=== PATIENT | female | born 1970 | race Caucasian/White ===

== ENCOUNTER → 2020-01-13 07:02 | Outpatient (CLI) | payer BC, SELFPAY ==
[2017-07-18 15:11] VITALS: BMI 39.2
== END ==
LOC: LAB 07:03 → LABSPEC 07:03
PROVIDERS: PCP Family Medicine; Referring Provider Internal Medicine; Visit Provider Internal Medicine
DX: R19.7 Diarrhea, unspecified (principal)
CPT/HCPCS: 83630; 87177; 87209; 87493; 87506

== ENCOUNTER 2020-01-15 14:17 | Outpatient (RCR) | payer BC, SELFPAY ==
[2017-07-18 15:11] VITALS: BMI 39.2
== END 2020-01-29 23:59 ==
LOC: EMPH 14:17
PROVIDERS: PCP Family Medicine; Visit Provider Family Medicine Geriatric Medicine
DX: Z11.59 Encounter for screening for other viral diseases (principal)
CPT/HCPCS: 87635; U0003

== ENCOUNTER → 2020-01-17 14:38 | Outpatient (CLI) | payer BC, SELFPAY ==
[2017-07-18 15:11] VITALS: BMI 39.2
[2020-01-17 16:32] LABS: Anion Gap 7 (5-15); BUN 7 mg/dL (7-18); BUN/Creat Ratio 13.1 RATIO (10-20); Calcium,Total 8.7 mg/dL (8.5-10.1); Chloride 107 mmol/L (98-107); Creatinine, Serum 0.53 mg/dL (0.55-1.02); EST Glomerular Filtration Rate 130 mL/min (>60); Est Glom Filt Rate - Afr Amer 157 mL/min (>60); Glucose 62 mg/dL (74-106); Potassium 4.1 mmol/L (3.5-5.1); Sodium Level 139 mmol/L (136-145)
== END ==
PROVIDERS: PCP Family Medicine; Visit Provider Family Medicine
DX: R82.4 Acetonuria (principal)
CPT/HCPCS: 36415; 80048; 83036

== ENCOUNTER 2020-02-27 11:38 | Outpatient (RCR) | payer BC, SELFPAY ==
[2017-07-18 15:11] VITALS: BMI 39.2
== END 2020-02-29 23:59 ==
LOC: EMPH 11:38
PROVIDERS: PCP Family Medicine; Referring Provider Family Medicine Geriatric Medicine; Visit Provider Family Medicine Geriatric Medicine
DX: Z03.818 Encounter for observation for suspected exposure to other biological agents ruled out (principal)
CPT/HCPCS: 87426

== ENCOUNTER 2020-03-25 13:16 | Outpatient (RCR) | payer BC, SELFPAY ==
[2017-07-18 15:11] VITALS: BMI 39.2
== END 2020-03-30 23:59 ==
LOC: EMPH 13:16
PROVIDERS: PCP Family Medicine; Referring Provider Family Medicine Geriatric Medicine; Visit Provider Family Medicine Geriatric Medicine
DX: Z03.818 Encounter for observation for suspected exposure to other biological agents ruled out (principal)
CPT/HCPCS: 87426

== ENCOUNTER 2020-04-29 14:08 | Outpatient (RCR) | payer BC, SELFPAY ==
[2017-07-18 15:11] VITALS: BMI 39.2
== END 2020-04-30 23:59 ==
LOC: EMPH 14:08
PROVIDERS: PCP Family Medicine; Referring Provider Family Medicine Geriatric Medicine; Visit Provider Family Medicine Geriatric Medicine
DX: Z03.818 Encounter for observation for suspected exposure to other biological agents ruled out (principal)
CPT/HCPCS: 87426

== ENCOUNTER 2020-05-29 14:13 | Outpatient (RCR) | payer BC, SELFPAY ==
[2017-07-18 15:11] VITALS: BMI 39.2
== END 2020-05-31 23:59 ==
LOC: EMPH 14:13
PROVIDERS: PCP Family Medicine; Referring Provider Family Medicine Geriatric Medicine; Visit Provider Family Medicine Geriatric Medicine
DX: Z03.818 Encounter for observation for suspected exposure to other biological agents ruled out (principal)
CPT/HCPCS: 87426

== ENCOUNTER 2020-06-26 14:53 | Outpatient (RCR) | payer BC, SELFPAY ==
[2017-07-18 15:11] VITALS: BMI 39.2
== END 2020-06-28 23:59 ==
LOC: EMPH 14:53
PROVIDERS: PCP Family Medicine; Referring Provider Family Medicine Geriatric Medicine; Visit Provider Family Medicine Geriatric Medicine
DX: Z03.818 Encounter for observation for suspected exposure to other biological agents ruled out (principal)
CPT/HCPCS: 87426

== ENCOUNTER 2020-07-22 14:08 | Outpatient (RCR) | payer BC, SELFPAY ==
[2017-07-18 15:11] VITALS: BMI 39.2
== END 2020-07-29 23:59 ==
LOC: EMPH 14:08
PROVIDERS: PCP Family Medicine; Referring Provider Family Medicine Geriatric Medicine; Visit Provider Family Medicine Geriatric Medicine
DX: Z03.818 Encounter for observation for suspected exposure to other biological agents ruled out (principal)
CPT/HCPCS: 87426

== ENCOUNTER 2020-08-21 14:27 | Outpatient (RCR) | payer BC, SELFPAY ==
[2017-07-18 15:11] VITALS: BMI 39.2
== END 2020-08-28 23:59 ==
LOC: EMPH 14:27
PROVIDERS: PCP Family Medicine; Referring Provider Family Medicine Geriatric Medicine; Visit Provider Family Medicine Geriatric Medicine
DX: Z03.818 Encounter for observation for suspected exposure to other biological agents ruled out (principal)
CPT/HCPCS: 87426

== ENCOUNTER → 2020-08-28 12:08 | Outpatient (CLI) | payer BC, SELFPAY ==
[2020-08-30 08:35] LABS: t-Transglutaminase IgA 3 U/mL (0-3)
[2020-08-31 16:08] LABS: Endomysial Antibody IgA Negative (Negative); Immunoglobulin A 125 mg/dL (87-352)
[2020-08-31 17:19] LABS: Deamidated Gliadin IgA 3 units (0-19); Deamidated Gliadin IgG 1 units (0-19); t-Transglutaminase IgA 3 U/mL (0-3)
== END ==
PROVIDERS: PCP Family Medicine; Referring Provider Internal Medicine; Visit Provider Internal Medicine
DX: K90.0 Celiac disease (principal)
CPT/HCPCS: 36415; 82784; 83516; 86255

== ENCOUNTER 2020-10-28 08:02 | Outpatient (RCR) | payer BC, SELFPAY ==
[2017-07-18 15:11] VITALS: BMI 39.2
== END 2020-10-28 23:59 ==
LOC: EMPH 08:02
PROVIDERS: PCP Family Medicine; Referring Provider Family Medicine Geriatric Medicine; Visit Provider Family Medicine Geriatric Medicine
DX: Z03.818 Encounter for observation for suspected exposure to other biological agents ruled out (principal)
CPT/HCPCS: 87426

== ENCOUNTER 2020-12-29 13:22 | Outpatient (RCR) | payer BC, SELFPAY ==
[2017-07-18 15:11] VITALS: BMI 39.2
== END 2020-12-29 23:59 ==
LOC: EMPH 13:22
PROVIDERS: PCP Family Medicine; Referring Provider Family Medicine Geriatric Medicine; Visit Provider Family Medicine Geriatric Medicine
DX: Z03.818 Encounter for observation for suspected exposure to other biological agents ruled out (principal)
CPT/HCPCS: 87426

== ENCOUNTER 2021-01-11 11:22 | Outpatient (RCR) | payer BC, SELFPAY | END 2021-01-28 23:59 | LOC: EMPH 11:22 | PROVIDERS: PCP Family Medicine; Referring Provider Family Medicine Geriatric Medicine; Visit Provider Family Medicine Geriatric Medicine | DX: Z03.818 Encounter for observation for suspected exposure to other biological agents ruled out (principal) | CPT/HCPCS: 87426 ==

== ENCOUNTER 2021-03-02 15:21 | Outpatient (RCR) | payer BC, SELFPAY | END 2021-03-30 23:59 | LOC: EMPH 15:21 | PROVIDERS: PCP Family Medicine; Referring Provider Family Medicine Geriatric Medicine; Visit Provider Family Medicine Geriatric Medicine | DX: Z03.818 Encounter for observation for suspected exposure to other biological agents ruled out (principal) | CPT/HCPCS: 87426 ==

== ENCOUNTER 2021-04-06 12:03 | Outpatient (RCR) | payer BC, SELFPAY | END 2021-04-30 23:59 | LOC: EMPH 12:03 | PROVIDERS: PCP Family Medicine; Referring Provider Family Medicine Geriatric Medicine; Visit Provider Family Medicine Geriatric Medicine | DX: Z03.818 Encounter for observation for suspected exposure to other biological agents ruled out (principal) | CPT/HCPCS: 87635; U0003 ==

== ENCOUNTER 2021-05-31 08:57 | Outpatient (RCR) | payer BC, SELFPAY | END 2021-05-31 23:59 | LOC: EMPH 08:57 | PROVIDERS: PCP Family Medicine; Referring Provider Family Medicine Geriatric Medicine; Visit Provider Family Medicine Geriatric Medicine | DX: Z03.818 Encounter for observation for suspected exposure to other biological agents ruled out (principal) | CPT/HCPCS: 87426 ==

== ENCOUNTER 2021-06-14 11:34 | Outpatient (RCR) | payer BC, SELFPAY | END 2021-06-28 23:59 | LOC: EMPH 11:34 | PROVIDERS: PCP Family Medicine; Referring Provider Family Medicine Geriatric Medicine; Visit Provider Family Medicine Geriatric Medicine | DX: Z03.818 Encounter for observation for suspected exposure to other biological agents ruled out (principal) | CPT/HCPCS: 87426 ==

== ENCOUNTER → 2022-10-03 | Outpatient (CLI) | payer OTHER, SELFPAY ==
--- NOTE | 2022-10-03 06:53 | ECHOD_ITS ---
Reason For Study: Chest pain Procedure This was a 2D Doppler, Color Flow transthoracic echocardiogram. Exam performed in department. Left Ventricle Normal LV size. Left ventricular systolic function is normal. The estimated ejection fraction is 60 %. Stage 2 diastolic dysfunction. No regional wall motion abnormalities noted. Right Ventricle Normal RV size. Normal systolic function. Atria Normal left atrium. Normal right atrium. Mitral Valve Normal mitral valve. Tricuspid Valve Normal tricuspid valve. Aortic Valve Trisinus/trileaflet aortic valve. Pulmonic Valve Normal pulmonic valve. Trivial pulmonic valve insufficiency. Great Vessels Normal aortic root. The pulmonary artery is normal size. Normal inferior vena cava. Pericardium/Pleural No pericardial effusion. MMode/2D Measurements & Calculations LVIDd: 4.5 cm IVSd: 1.0 cm Ao root diam: 3.3 cm LVIDs: 2.7 cm LVPWd: 1.3 cm RVDd: 3.7 cm FS: 40.6 % LAV(MOD-bp): 46.9 ml LVAd ap4: 25.5 cm2 LVAd ap2: 28.0 cm2 LAV(MOD-bp) Indexed: 21.3 ml/m2 LVLd ap4: 7.4 cm LVLd ap2: 7.8 cm LAV(MOD-sp2): 39.8 ml EDV(MOD-sp4): 75.1 ml EDV(MOD-sp2): 84.6 ml LAV(MOD-sp4): 50.9 ml EDV(sp4-el): 74.5 ml EDV(sp2-el): 84.9 ml LVAs ap4: 14.3 cm2 LVAs ap2: 14.5 cm2 LVLs ap4: 6.2 cm LVLs ap2: 6.3 cm ESV(MOD-sp4): 29.6 ml ESV(MOD-sp2): 28.6 ml ESV(sp4-el): 28.4 ml ESV(sp2-el): 28.4 ml EF(MOD-sp4): 60.6 % EF(MOD-sp2): 66.2 % EF(sp4-el): 61.9 % SV(MOD-sp4): 45.5 ml SV(MOD-sp2): 56.0 ml SV(sp4-el): 46.1 ml LA dimension(2D): 3.9 cm LA A4 area: 18.1 cm2 RA A4 area: 10.9 cm2 TAPSE: 2.6 cm Time Measurements MV dec time: 0.25 sec Doppler Measurements & Calculations MV E max silvano: 87.4 cm/sec Lat Peak E' Silvano: 7.6 cm/sec Med Peak E' Silvano: 6.5 cm/sec MV A max silvano: 102.9 cm/sec E/E' lat: 11.5 E/E' med: 13.5 MV E/A: 0.85 MV dec slope: 352.4 cm/sec2 Ao V2 max: 142.8 cm/sec LV V1 max: 122.1 cm/sec Ao max P.2 mmHg LV V1 max P.0 mmHg Ao V2 mean: 102.2 cm/sec LV V1 mean P.5 mmHg Ao mean P.7 mmHg LV V1 mean: 88.5 cm/sec Ao V2 VTI: 35.0 cm LV V1 VTI: 28.6 cm AV (velocity ratio): 0.82 PA V2 max: 102.5 cm/sec ECHO/Echo Complete Interpretation Summary Normal LV size. Left ventricular systolic function is normal. The estimated ejection fraction is 60 %. Stage 2 diastolic dysfunction. Structurally normal valves. Ordering Physician: GUILLAUME JOE Referring Physician: GUILLAUME JOE Performed By: Cristina Bennett RDCS
--- NOTE | 2022-10-03 17:21 | STRESSREP ---
Stress Test Report Exercise myocardial perfusion stress test. 52-year-old lady with chest pain Stress protocol: Resting EKG demonstrates normal sinus rhythm with a rate of 58 bpm resting blood pressure is 118/80 mmHg. The patient exercised according to the regular Alen protocol for a total duration of 6 minutes attaining a maximum heart rate of 171 bpm which was 100% of maximum predicted heart rate; the maximum workload was 7 metabolic equivalents. At rest there were no ST or T wave changes noted to suggest ischemia and at peak exercise upsloping ST changes only were noted which did not meet the criteria for ischemia. No clinical angina was noted the test was terminated due to the target heart rate being achieved/fatigue. The peak blood pressure was 180/70 mmHg. Rate-pressure product was 21,100. Myocardial perfusion protocol. 14.4 mCi of technetium 99m sestamibi was injected at rest. The patient exercised according to regular Alen protocol for total duration of 6 minutes and at peak exercise 44.2 mCi of technetium 99m sestamibi was injected stress images were obtained stress and rest images were reconstructed in comparing the short axis vertical long and horizontal long axis. Gated images were also obtained. Perfusion SPECT analysis: Review of the stress images demonstrate normal uptake of tracer noted in all areas of the myocardium. The resting images similarly demonstrate normal uptake of tracer noted in all areas of the myocardium. No areas of reversibility are noted to suggest ischemia no previous infarct was noted. Gated SPECT analysis: The gated ejection fraction is 79%. Conclusion: Normal exercise myocardial perfusion stress test at a moderate workload Preserved ejection fraction.
== END | disposition home or self-care (01) ==
LOC: CVS 06:51
PROVIDERS: PCP Family Medicine
DX: R07.9 Chest pain, unspecified (principal)
CPT/HCPCS: 78452; 93017; 93306; A9500; A4216

== ENCOUNTER → 2023-03-15 | Outpatient (CLI) | payer OTHER, SELFPAY ==
--- NOTE | 2023-03-15 13:06 | BI_ITS ---
MAMMOGRAPHY - BILATERAL SCREENING REASON FOR EXAM: Female, 52 years old. Routine annual screening examination. PERTINENT HISTORY: Grandmother with breast cancer. Aunt with breast cancer. Remote right stereotactic breast biopsy. TECHNIQUE: Digital bilateral breast addi (3D mammographic acquisition) in the CC and MLO projections. 2-D mediolateral oblique (MLO) and craniocaudad (CC) views of both breasts were obtained. CAD: Full Field Digital Mammography with Computer Added Detection was performed. COMPARISON: Comparison is made with prior abdomen examination of November 07, 2019. FINDINGS: Breast Composition: There are scattered areas of fibroglandular density. There are no dominant masses or suspicious calcifications. Stable fat-containing bilateral axillary lymph nodes. A tissue clip marker is once again seen within a 1 cm nodule in the upper lateral aspect of the right breast. No other significant abnormalities are identified. There has been no significant change since the prior study. BI/SCRN MAMM (CAD)W/ADDI BILAT IMPRESSION: Stable bilateral screening mammogram. Yearly follow-up mammogram recommended. (A) ASSESSMENT CATEGORY: BIRADS Category 2: Benign. A letter regarding these results will be sent to the patient by the facility within 30 days. Approximately 10% of breast cancers are not detected by mammography. A normal mammogram should not delay biopsy of a clinically suspicious abnormality. [id number] Electronically Signed: Bartolome Knight MD at 15:29 EST ,
== END | disposition home or self-care (01) ==
LOC: OPBI 13:05
PROVIDERS: PCP Family Medicine; Referring Provider Family Medicine; Visit Provider Family Medicine
DX: Z12.31 Encounter for screening mammogram for malignant neoplasm of breast (principal); Z80.3 Family history of malignant neoplasm of breast
CPT/HCPCS: 77063; 77067

== ENCOUNTER → 2024-03-19 | Outpatient (CLI) | payer OTHER, SELFPAY ==
--- NOTE | 2024-03-19 07:26 | BI_ITS ---
MAMMOGRAPHY - BILATERAL SCREENING REASON FOR EXAM: Female, 53 years old. Routine annual screening examination. PERTINENT HISTORY: Grandmother with breast cancer. Aunt with breast cancer. Prior right stereotactic breast biopsy. TECHNIQUE: Digital bilateral breast addi (3D mammographic acquisition) in the CC and MLO projections. 2-D mediolateral oblique (MLO) and craniocaudad (CC) views of both breasts were obtained. CAD: Full Field Digital Mammography with Computer Added Detection was performed. COMPARISON: Comparison is made with prior study dated March 15, 2023. FINDINGS: Breast Composition: There are scattered areas of fibroglandular density. There are no dominant masses or suspicious calcifications. A tissue clip marker is seen within the tiny nodular density in the upper outer aspect of the right breast. Stable bilateral fat containing axillary lymph nodes. No other significant abnormalities are identified. There has been no significant change since the prior study. BI/SCRN MAMM (CAD)W/ADDI BILAT IMPRESSION: Stable bilateral screening mammogram. Yearly follow-up mammogram recommended. (A) ASSESSMENT CATEGORY: BIRADS Category 2: Benign. A letter regarding these results will be sent to the patient by the facility within 30 days. Approximately 10% of breast cancers are not detected by mammography. A normal mammogram should not delay biopsy of a clinically suspicious abnormality. [id number] Electronically Signed: Bartolome Knight MD at 9:37 EST ,
== END | disposition home or self-care (01) ==
LOC: OPBI 07:19
PROVIDERS: PCP Family Medicine; Referring Provider Family Medicine; Visit Provider Family Medicine
DX: Z12.31 Encounter for screening mammogram for malignant neoplasm of breast (principal); Z80.3 Family history of malignant neoplasm of breast
CPT/HCPCS: 77063; 77067

== ENCOUNTER → 2024-08-16 | Outpatient (CLI) | payer OTHER, SELFPAY ==
--- NOTE | 2024-08-16 14:59 | RAD_ITS ---
PROCEDURE: CHEST PA AND LATERAL 08/16/2024 REASON FOR EXAM: COUGH TECHNIQUE: Frontal and lateral views of the chest. COMPARISON: None FINDINGS: Hardware: None Heart: Heart size is upper limits of normal. Mediastinum: The mediastinal contour is unremarkable. Lungs: The lungs are clear. Bones: The bones are unremarkable. RAD/Chest PA and Lateral IMPRESSION: NO ACUTE FINDINGS. Reading Location: [id number]
== END | disposition home or self-care (01) ==
LOC: MTRAD 14:59
PROVIDERS: PCP Family Medicine; Referring Provider Physician Assistant Surgical; Visit Provider Physician Assistant Surgical
DX: R05.9 Cough, unspecified (principal)
CPT/HCPCS: 71046

== ENCOUNTER → 2024-08-29 | Outpatient (CLI) | payer OTHER, SELFPAY ==
--- NOTE | 2024-08-29 09:07 | RAD_ITS ---
PROCEDURE: CHEST PA AND LATERAL 08/29/2024 REASON FOR EXAM: SHORTNESS OF BREATH TECHNIQUE: Frontal and lateral views of the chest. COMPARISON: August 16, 2024 FINDINGS: Heart size and mediastinal configuration are within normal limits. There is no focal infiltrate or consolidation. There is no pneumothorax or effusion. There is no acute bony abnormality. There is no visible atherosclerosis. RAD/Chest PA and Lateral IMPRESSION: No acute process is identified in the chest. Reading Location: [facility]
== END | disposition home or self-care (01) ==
LOC: MTRAD 09:02
PROVIDERS: PCP Family Medicine; Referring Provider Physician Assistant Surgical; Visit Provider Physician Assistant Surgical
DX: J20.9 Acute bronchitis, unspecified (principal)
CPT/HCPCS: 71046

== ENCOUNTER → 2024-10-31 | Outpatient (CLI) | payer OTHER, SELFPAY ==
[2024-10-31 17:19] LABS: AST(SGOT) 15 U/L (<=31); Alanine Aminotransfer ALT/SGPT 13 U/L (<=34)
[2024-10-31 18:12] LABS: Cholesterol 126 mg/dL (<=200); Low Density Lipoprotein Calc. 70 mg/dL; Triglycerides 112 mg/dL; Very Low Density Lipoprotein 22 mg/dL (5-40); cholesterol:hdl ratio screen 3.74
== END | disposition home or self-care (01) ==
LOC: LAB 15:36
PROVIDERS: PCP Family Medicine; Referring Provider Podiatrist; Visit Provider Podiatrist
DX: B35.1 Tinea unguium (principal); E78.5 Hyperlipidemia, unspecified; E78.6 Lipoprotein deficiency
CPT/HCPCS: 36415; 80061; 84450; 84460

== ENCOUNTER → 2024-12-23 | Outpatient (CLI) | payer OTHER, SELFPAY ==
[2024-12-23 10:12] LABS: Hematocrit 37.4 % (37-47); Hemoglobin 12.0 g/dL (12.0-15.0); Immature Granulocytes Count 0.020 X10^3/uL (0.0-0.0); Mean Corp Hgb Conc 32.1 g/dL (32-36); Mean Corpuscular Volume 86.8 fL (81-99); Mean Platelet Vol. 11.7 fl (6.2-12.0); NRBC Flagged by Analyzer 0 % (0-5); Platelet Count 275 K/mm3 (150-450); RBC Distribution Width CV 13.5 % (11.6-14.6); RBC Distribution Width SD 42.7 fl (35.1-43.9); Red Blood Count 4.31 M/mm3 (4.2-5.4); White Blood Count 7.2 K/mm3 (4.4-11.0)
[2024-12-23 11:30] LABS: AST(SGOT) 13 U/L (<=31); Alanine Aminotransfer ALT/SGPT 12 U/L (<=34); Albumin, Serum 3.9 g/dL (3.5-5.0); Alkaline Phosphatase 67 U/L (35-104); Anion Gap 10 (5-15); BUN 12 mg/dL (4-19); BUN/Creat Ratio 20.5 RATIO (10-20); Calcium,Total 9.5 mg/dL (7.6-11.0); Carbon Dioxide 23.7 mmol/L (21.0-32.0); Chloride 106 mmol/L (98-108); Globulin 2.5 g/dL (2.2-4.2); Glucose 89 mg/dL (70-99); Magnesium 2.0 mg/dL (1.5-2.2); Potassium 4.3 mmol/L (3.3-5.1)
== END | disposition home or self-care (01) ==
LOC: LAB 09:09
PROVIDERS: PCP Family Medicine; Referring Provider Internal Medicine; Visit Provider Internal Medicine
DX: Z01.812 Encounter for preprocedural laboratory examination (principal)
CPT/HCPCS: 36415; 80053; 83735; 85025

== ENCOUNTER → 2025-04-10 | Outpatient (CLI) | payer OTHER, SELFPAY ==
--- NOTE | 2025-04-10 12:30 | BI_ITS ---
EXAM: SCRN MAMM (CAD)W/ADDI BILAT DATE: 04/10/2025 CLINICAL HISTORY: F, Age 54 y/o , SCREENING Grandmother with breast cancer. Aunt with breast cancer. Prior right stereotactic breast biopsy. TECHNIQUE: Procedure Code: [id number] Modality: MG Procedure: SCRN MAMM (CAD)W/ADDI BILAT COMPARISON: Prior exam(s) dated March 19, 2024.. FINDINGS: TISSUE DENSITY: There are scattered areas of fibroglandular density. Bilateral Breast Mammographic Findings: No significant masses, calcifications or other abnormalities are identified. Stable small nodular density in the upper lateral aspect of the right breast. A tissue clip marker is seen within it. Stable bilateral fat containing axillary lymph nodes. No suspicious masses, areas of developing architectural distortion, or suspicious calcifications. There has been no significant interval change. BI/SCRN MAMM (CAD)W/ADDI BILAT IMPRESSION: Stable bilateral screening mammogram. OVERALL FINAL ASSESSMENT BI-RADS 2: BENIGN RECOMMENDATION: Routine annual follow-up in 1 Year Additional Recommendation none A letter with findings and recommendations will be mailed to the patient. Reading Location: [place] [id number]
== END | disposition home or self-care (01) ==
LOC: OPBI 12:29
PROVIDERS: PCP Internal Medicine; Referring Provider Internal Medicine; Visit Provider Internal Medicine
DX: Z12.31 Encounter for screening mammogram for malignant neoplasm of breast (principal); Z80.3 Family history of malignant neoplasm of breast
CPT/HCPCS: 77063; 77067